=== PATIENT | female | born 1975 | race Two or more races ===

== ENCOUNTER 2021-04-02 16:36 | Inpatient (IN) | payer BC ==
[2021-04-02 17:53] VITALS: BMI 23.0
[2021-04-02] MEDS ORDERED: MAGNESIUM HYDROX 2400MG/30ML ORAL SUSPENSION 30 ML CUP PO PRN (20:17)
[2021-04-02] MEDS ORDERED: IBUPROFEN 400 MG TABLET (FP) PO PRN (20:17)
[2021-04-02] MEDS ORDERED: MAG HYDROX/AL HYDROX/SIMETH 30 ML UNIT-DOSE CUP PO PRN (20:17)
[2021-04-02] MEDS ORDERED: MAGNESIUM CITRATE 300 ML BOTTLE PO PRN (20:17)
[2021-04-02] MEDS ORDERED: guaiFENesin 200 MG/10 ML 10 ML UNIT-DOSE CUPS PO PRN (20:17)
[2021-04-02] MEDS ORDERED: LOPERAMIDE HCL 2 MG CAPSULE PO PRN (20:17)
[2021-04-02] MEDS ORDERED: ACETAMINOPHEN 325 MG TABLET (FP) PO PRN (20:17)
[2021-04-02] MEDS ORDERED: P-EPHED 60MG/TRIPROLIDI 2.5MG TABLET PO PRN (20:17)
[2021-04-02] MEDS ORDERED: MELATONIN 5 MG TABLETS PO SCH (22:00)
[2021-04-02] MEDS: hydrOXYzine PAMOATE 25 MG CAPSULE (FP) PO SCH (23:54)
[2021-04-03] MEDS: PRENATAL VITAMINS W/ FOLIC ACID TABLET (FP) PO SCH ×2 (00:01→10:59)
[2021-04-03] MEDS: hydrOXYzine PAMOATE 25 MG CAPSULE (FP) PO SCH ×2 (06:41→11:00)
[2021-04-03 11:01] LABS: HEMATOCRIT 31.1 % (32.4-45.2); MCH 29.2 pg (25.7-33.7); MCHC 32.1 g/dl (32.0-36.0); MEAN PLT VOLUME 8.8 fl (7.5-11.1); PLATELET COUNT 322 10^3/uL (134-434); RBC 3.42 M/mm3 (3.60-5.2); RDW 23.6 % (11.6-15.6); WHITE BLOOD COUNT 4.1 K/mm3 (4.0-10.0)
[2021-04-03 11:05] LABS: ALBUMIN 3.4 g/dl (3.4-5.0); BLOOD UREA NITROGEN 14.2 mg/dL (7-18)
[2021-04-03 11:08] LABS: CREATININE 0.6 mg/dL (0.55-1.3)
[2021-04-03 11:09] LABS: BILIRUBIN,TOTAL 0.3 mg/dL (0.2-1); TOT PROT 8.1 g/dl (6.4-8.2)
[2021-04-03] MEDS ORDERED: TUBERCULIN PPD 5 TU/0.1ML VIAL ID ONE ×4 (12:28→14:14)
[2021-04-03] MEDS: GABAPENTIN 300 MG CAPSULE PO SCH ×2 (15:04→21:28)
[2021-04-03] MEDS ORDERED: PT OWN MED DRAWER 7, Y5N ONE (15:04)
[2021-04-03] MEDS: VENLAFAXINE HCL 150 MG E.R. CAPSULE PO SCH (15:54)
[2021-04-03] MEDS: hydrOXYzine PAMOATE 50 MG CAPSULE (FP) PO PRN (16:54)
[2021-04-03 18:51] LABS: PH,URINE 6.5 (5.0-8.0); URINE APPEARANCE CLEAR; URINE BILIRUBIN NEGATIVE (NEGATIVE); URINE COLOR YELLOW; URINE GLUCOSE (UA) NEGATIVE (NEGATIVE); URINE KETONE NEGATIVE (NEGATIVE); URINE PROTEIN NEGATIVE (NEGATIVE)
[2021-04-03 18:52] LABS: EPI CELLS 19.6 /uL (0-25.1); URINE BACTERIA 323.3 /uL (0-1359); URINE LEUK ESTERASE TRACE (NEGATIVE); URINE NITRITE NEGATIVE (NEGATIVE); URINE WBC 22.4 /uL (0-25.8)
[2021-04-03] MEDS: QUEtiapine FUMARATE 300 MG TABLET PO SCH (21:28)
[2021-04-03] MEDS: traZODone HCL 100 MG TABLET (FP) PO SCH (21:28)
[2021-04-03] MEDS: THIAMINE HCL 100 MG TABLET (FP) PO SCH ×2 (21:28)
[2021-04-04] MEDS: GABAPENTIN 300 MG CAPSULE PO SCH ×3 (06:49→21:56)
[2021-04-04] MEDS: PRENATAL VITAMINS W/ FOLIC ACID TABLET (FP) PO SCH (10:24)
[2021-04-04] MEDS: VENLAFAXINE HCL 150 MG E.R. CAPSULE PO SCH (10:25)
[2021-04-04] MEDS: hydrOXYzine PAMOATE 50 MG CAPSULE (FP) PO PRN (10:27)
[2021-04-04] MEDS ORDERED: MASKS NR ONE (12:12)
[2021-04-04] MEDS: THIAMINE HCL 100 MG TABLET (FP) PO SCH (21:56)
[2021-04-04] MEDS: QUEtiapine FUMARATE 300 MG TABLET PO SCH (21:56)
[2021-04-04] MEDS: traZODone HCL 100 MG TABLET (FP) PO SCH (21:56)
[2021-04-05] MEDS: GABAPENTIN 300 MG CAPSULE PO SCH ×3 (06:46→21:52)
[2021-04-05] MEDS: VENLAFAXINE HCL 150 MG E.R. CAPSULE PO SCH (10:17)
[2021-04-05] MEDS: PRENATAL VITAMINS W/ FOLIC ACID TABLET (FP) PO SCH (10:17)
[2021-04-05] MEDS: hydrOXYzine PAMOATE 50 MG CAPSULE (FP) PO PRN (10:19)
[2021-04-05] MEDS: BICTEGRAV/EMTRICIT/TENOFOV (BIKTARVY) 50-200-25 MG TABLET PO SCH (14:15)
[2021-04-05] MEDS: SULFAMETHOXAZOLE/TRIMETHOPRIM 800MG/160MG D.S. TABLET PO SCH (14:15)
[2021-04-05] MEDS ORDERED: PT OWN MED DRAWER 7, Y5N ONE (14:28)
[2021-04-05] MEDS: QUEtiapine FUMARATE 200 MG TABLET PO PRN (14:44)
[2021-04-05] MEDS: QUEtiapine FUMARATE 400 MG TABLET PO SCH (21:52)
[2021-04-05] MEDS: traZODone HCL 100 MG TABLET (FP) PO SCH (21:52)
[2021-04-05] MEDS: THIAMINE HCL 100 MG TABLET (FP) PO SCH (21:52)
[2021-04-06] MEDS: GABAPENTIN 300 MG CAPSULE PO SCH ×3 (07:23→21:44)
[2021-04-06] MEDS: PRENATAL VITAMINS W/ FOLIC ACID TABLET (FP) PO SCH (10:19)
[2021-04-06] MEDS: BICTEGRAV/EMTRICIT/TENOFOV (BIKTARVY) 50-200-25 MG TABLET PO SCH (10:19)
[2021-04-06] MEDS: SULFAMETHOXAZOLE/TRIMETHOPRIM 800MG/160MG D.S. TABLET PO SCH (10:19)
[2021-04-06] MEDS: VENLAFAXINE HCL 75 MG E.R. CAPSULES PO SCH (10:20)
[2021-04-06] MEDS: QUEtiapine FUMARATE 200 MG TABLET PO PRN (10:22)
[2021-04-06] MEDS: THIAMINE HCL 100 MG TABLET (FP) PO SCH (21:45)
[2021-04-06] MEDS: traZODone HCL 100 MG TABLET (FP) PO SCH (21:45)
[2021-04-06] MEDS: QUEtiapine FUMARATE 400 MG TABLET PO SCH (21:45)
[2021-04-07] MEDS: GABAPENTIN 300 MG CAPSULE PO SCH ×3 (06:45→21:56)
[2021-04-07] MEDS: VENLAFAXINE HCL 75 MG E.R. CAPSULES PO SCH (10:04)
[2021-04-07] MEDS: SULFAMETHOXAZOLE/TRIMETHOPRIM 800MG/160MG D.S. TABLET PO SCH (10:04)
[2021-04-07] MEDS: BICTEGRAV/EMTRICIT/TENOFOV (BIKTARVY) 50-200-25 MG TABLET PO SCH (10:04)
[2021-04-07] MEDS: PRENATAL VITAMINS W/ FOLIC ACID TABLET (FP) PO SCH (10:05)
[2021-04-07] MEDS: QUEtiapine FUMARATE 200 MG TABLET PO PRN (13:56)
[2021-04-07] MEDS: traZODone HCL 100 MG TABLET (FP) PO SCH (21:56)
[2021-04-07] MEDS: QUEtiapine FUMARATE 400 MG TABLET PO SCH (21:56)
[2021-04-07] MEDS: THIAMINE HCL 100 MG TABLET (FP) PO SCH (21:57)
[2021-04-08] MEDS: GABAPENTIN 300 MG CAPSULE PO SCH ×3 (07:05→21:36)
[2021-04-08] MEDS ORDERED: PT OWN MED DRAWER 7, Y5N ONE (07:05)
[2021-04-08] MEDS: BICTEGRAV/EMTRICIT/TENOFOV (BIKTARVY) 50-200-25 MG TABLET PO SCH (07:06)
[2021-04-08] MEDS: VENLAFAXINE HCL 75 MG E.R. CAPSULES PO SCH (10:26)
[2021-04-08] MEDS: SULFAMETHOXAZOLE/TRIMETHOPRIM 800MG/160MG D.S. TABLET PO SCH (10:26)
[2021-04-08] MEDS: PRENATAL VITAMINS W/ FOLIC ACID TABLET (FP) PO SCH (10:27)
[2021-04-08] MEDS: QUEtiapine FUMARATE 200 MG TABLET PO PRN (10:29)
[2021-04-08] MEDS: THIAMINE HCL 100 MG TABLET (FP) PO SCH (21:35)
[2021-04-08] MEDS: traZODone HCL 100 MG TABLET (FP) PO SCH (21:36)
[2021-04-08] MEDS: QUEtiapine FUMARATE 400 MG TABLET PO SCH (21:36)
[2021-04-09] MEDS: GABAPENTIN 300 MG CAPSULE PO SCH ×3 (06:21→21:26)
[2021-04-09] MEDS: SULFAMETHOXAZOLE/TRIMETHOPRIM 800MG/160MG D.S. TABLET PO SCH (10:29)
[2021-04-09] MEDS: VENLAFAXINE HCL 75 MG E.R. CAPSULES PO SCH (10:30)
[2021-04-09] MEDS: PRENATAL VITAMINS W/ FOLIC ACID TABLET (FP) PO SCH (10:30)
[2021-04-09] MEDS: BICTEGRAV/EMTRICIT/TENOFOV (BIKTARVY) 50-200-25 MG TABLET PO SCH (11:32)
[2021-04-09] MEDS: QUEtiapine FUMARATE 200 MG TABLET PO PRN (14:29)
[2021-04-09] MEDS: traZODone HCL 100 MG TABLET (FP) PO SCH (21:26)
[2021-04-09] MEDS: THIAMINE HCL 100 MG TABLET (FP) PO SCH (21:26)
[2021-04-09] MEDS: QUEtiapine FUMARATE 400 MG TABLET PO SCH (21:26)
[2021-04-10] MEDS: GABAPENTIN 300 MG CAPSULE PO SCH ×3 (06:43→22:10)
[2021-04-10] MEDS ORDERED: PT OWN MED DRAWER 7, Y5N ONE (06:46)
[2021-04-10] MEDS: PRENATAL VITAMINS W/ FOLIC ACID TABLET (FP) PO SCH (10:30)
[2021-04-10] MEDS: QUEtiapine FUMARATE 200 MG TABLET PO PRN (10:31)
[2021-04-10] MEDS: SULFAMETHOXAZOLE/TRIMETHOPRIM 800MG/160MG D.S. TABLET PO SCH (10:31)
[2021-04-10] MEDS: BICTEGRAV/EMTRICIT/TENOFOV (BIKTARVY) 50-200-25 MG TABLET PO SCH (10:31)
[2021-04-10] MEDS: VENLAFAXINE HCL 75 MG E.R. CAPSULES PO SCH (10:31)
[2021-04-10] MEDS: traZODone HCL 100 MG TABLET (FP) PO SCH (22:10)
[2021-04-10] MEDS: QUEtiapine FUMARATE 400 MG TABLET PO SCH (22:10)
[2021-04-10] MEDS: THIAMINE HCL 100 MG TABLET (FP) PO SCH (22:10)
[2021-04-11] MEDS ORDERED: PT OWN MED DRAWER 7, Y5N ONE ×2 (06:40→13:11)
[2021-04-11] MEDS: GABAPENTIN 300 MG CAPSULE PO SCH ×3 (06:41→21:47)
[2021-04-11] MEDS: BICTEGRAV/EMTRICIT/TENOFOV (BIKTARVY) 50-200-25 MG TABLET PO SCH (07:36)
[2021-04-11] MEDS: VENLAFAXINE HCL 75 MG E.R. CAPSULES PO SCH (10:23)
[2021-04-11] MEDS: SULFAMETHOXAZOLE/TRIMETHOPRIM 800MG/160MG D.S. TABLET PO SCH (10:23)
[2021-04-11] MEDS: PRENATAL VITAMINS W/ FOLIC ACID TABLET (FP) PO SCH (10:24)
[2021-04-11] MEDS: traZODone HCL 100 MG TABLET (FP) PO SCH (21:47)
[2021-04-11] MEDS: THIAMINE HCL 100 MG TABLET (FP) PO SCH (21:47)
[2021-04-11] MEDS: QUEtiapine FUMARATE 400 MG TABLET PO SCH (21:47)
[2021-04-12] MEDS ORDERED: PT OWN MED DRAWER 7, Y5N ONE (04:24)
[2021-04-12] MEDS: GABAPENTIN 300 MG CAPSULE PO SCH ×3 (06:22→21:48)
[2021-04-12] MEDS: QUEtiapine FUMARATE 200 MG TABLET PO PRN (06:24)
[2021-04-12] MEDS: BICTEGRAV/EMTRICIT/TENOFOV (BIKTARVY) 50-200-25 MG TABLET PO SCH (07:01)
[2021-04-12] MEDS: PRENATAL VITAMINS W/ FOLIC ACID TABLET (FP) PO SCH (10:28)
[2021-04-12] MEDS: SULFAMETHOXAZOLE/TRIMETHOPRIM 800MG/160MG D.S. TABLET PO SCH (10:28)
[2021-04-12] MEDS: VENLAFAXINE HCL 75 MG E.R. CAPSULES PO SCH (10:28)
[2021-04-12] MEDS: traZODone HCL 100 MG TABLET (FP) PO SCH (21:48)
[2021-04-12] MEDS: QUEtiapine FUMARATE 400 MG TABLET PO SCH (21:57)
[2021-04-12] MEDS: THIAMINE HCL 100 MG TABLET (FP) PO SCH (21:58)
[2021-04-13] MEDS: QUEtiapine FUMARATE 200 MG TABLET PO PRN (06:28)
[2021-04-13] MEDS ORDERED: PT OWN MED DRAWER 7, Y5N ONE ×2 (06:28→20:37)
[2021-04-13] MEDS: GABAPENTIN 300 MG CAPSULE PO SCH ×3 (06:28→21:42)
[2021-04-13] MEDS: BICTEGRAV/EMTRICIT/TENOFOV (BIKTARVY) 50-200-25 MG TABLET PO SCH (10:46)
[2021-04-13] MEDS: VENLAFAXINE HCL 75 MG E.R. CAPSULES PO SCH (10:47)
[2021-04-13] MEDS: PRENATAL VITAMINS W/ FOLIC ACID TABLET (FP) PO SCH (10:47)
[2021-04-13] MEDS: SULFAMETHOXAZOLE/TRIMETHOPRIM 800MG/160MG D.S. TABLET PO SCH (10:47)
[2021-04-13] MEDS: QUEtiapine FUMARATE 400 MG TABLET PO SCH (21:42)
[2021-04-13] MEDS: traZODone HCL 100 MG TABLET (FP) PO SCH (21:42)
[2021-04-13] MEDS: THIAMINE HCL 100 MG TABLET (FP) PO SCH (21:43)
[2021-04-14] MEDS: GABAPENTIN 300 MG CAPSULE PO SCH ×3 (06:38→22:08)
[2021-04-14] MEDS: BICTEGRAV/EMTRICIT/TENOFOV (BIKTARVY) 50-200-25 MG TABLET PO SCH (07:49)
[2021-04-14] MEDS: PRENATAL VITAMINS W/ FOLIC ACID TABLET (FP) PO SCH (10:41)
[2021-04-14] MEDS: SULFAMETHOXAZOLE/TRIMETHOPRIM 800MG/160MG D.S. TABLET PO SCH (10:41)
[2021-04-14] MEDS: VENLAFAXINE HCL 75 MG E.R. CAPSULES PO SCH (10:43)
[2021-04-14] MEDS: THIAMINE HCL 100 MG TABLET (FP) PO SCH (22:08)
[2021-04-14] MEDS: QUEtiapine FUMARATE 400 MG TABLET PO SCH (22:08)
[2021-04-14] MEDS: traZODone HCL 100 MG TABLET (FP) PO SCH (22:08)
[2021-04-15] MEDS: GABAPENTIN 300 MG CAPSULE PO SCH ×3 (06:43→21:19)
[2021-04-15] MEDS: QUEtiapine FUMARATE 200 MG TABLET PO PRN (06:44)
[2021-04-15] MEDS: BICTEGRAV/EMTRICIT/TENOFOV (BIKTARVY) 50-200-25 MG TABLET PO SCH (10:55)
[2021-04-15] MEDS: VENLAFAXINE HCL 75 MG E.R. CAPSULES PO SCH (10:55)
[2021-04-15] MEDS: SULFAMETHOXAZOLE/TRIMETHOPRIM 800MG/160MG D.S. TABLET PO SCH (10:55)
[2021-04-15] MEDS: PRENATAL VITAMINS W/ FOLIC ACID TABLET (FP) PO SCH (10:56)
[2021-04-15] MEDS: traZODone HCL 100 MG TABLET (FP) PO SCH (21:19)
[2021-04-15] MEDS: QUEtiapine FUMARATE 400 MG TABLET PO SCH (21:19)
[2021-04-15] MEDS: THIAMINE HCL 100 MG TABLET (FP) PO SCH (21:20)
[2021-04-16] MEDS: GABAPENTIN 300 MG CAPSULE PO SCH (06:51)
[2021-04-16 07:07] VITALS: BP 137/95; PULSE 94; TEMP 97.1
[2021-04-16] MEDS: BICTEGRAV/EMTRICIT/TENOFOV (BIKTARVY) 50-200-25 MG TABLET PO SCH (08:30)
[2021-04-16] MEDS ORDERED: PT OWN MED DRAWER 7, Y5N ONE (09:29)
[2021-04-16] MEDS: SULFAMETHOXAZOLE/TRIMETHOPRIM 800MG/160MG D.S. TABLET PO SCH (09:33)
[2021-04-16] MEDS: VENLAFAXINE HCL 75 MG E.R. CAPSULES PO SCH (09:34)
[2021-04-16] MEDS: PRENATAL VITAMINS W/ FOLIC ACID TABLET (FP) PO SCH (09:50)
== END 2021-04-16 09:50 | disposition home or self-care (01) | DRG 772 ==
LOC: YASAS 16:36 → Y5N 22:49
PROVIDERS: ADMIT Allergy & Immunology; ATTEND Allergy & Immunology
PROC: HZ42ZZZ Group Counseling for Substance Abuse Treatment, Cognitive-Behavioral (ICD-10-PCS; principal; 2021-04-02)
DX: F10.20 Alcohol dependence, uncomplicated (principal); F10.24 Alcohol dependence with alcohol-induced mood disorder; F10.282 Alcohol dependence with alcohol-induced sleep disorder; F12.20 Cannabis dependence, uncomplicated; F31.9 Bipolar disorder, unspecified; F41.9 Anxiety disorder, unspecified; Z21 Asymptomatic human immunodeficiency virus [HIV] infection status
CPT/HCPCS: 36415; 80053; 81003; 81025; 85027; 86780; 93005; 93010; C9803; U0003; U0005